=== PATIENT | female | born 1965 ===

== ENCOUNTER 2017-01-08 13:00 | Emergency (ER) | payer MEDICAID ==
--- NOTE | 2017-01-08 13:33 | ED PDOC ---
Arrival/HPI - General Time Seen by Provider: 01/08/17 13:29 Historian: Patient - History of Present Illness Narrative History of Present Illness (Text): 01/08/17 13:31 52 year old female, pmh including osteoporosis, nkda, complaining of lower back pain x 1 week after heavy lifting with no fall or direct trauma. Pt. was trying to lift her 30lbs dog about 1 week ago, been having pain since, aching pain, feels lower back tightness, no night sweat, no rash, no numbness or tingling, non-radiating, no urinary or bowel incontinence or retention, no palpitation, no rash, no other medical or psychological complaints. Past Medical History - Provider Review Nursing Documentation Reviewed: Yes Family/Social History - Physician Review Nursing Documentation Reviewed: Yes Family/Social History: Unknown Family HX Allergies/Home Meds Allergies/Adverse Reactions: Allergies No Known Allergies Allergy (Verified 01/11/15 11:09) Review of Systems - Review of Systems Constitutional: absent: Fatigue, Fevers Eyes: absent: Vision Changes ENT: absent: Hearing Changes Respiratory: absent: SOB, Cough Gastrointestinal: absent: Abdominal Pain, Diarrhea, Nausea, Vomiting Musculoskeletal: Back Pain, Myalgias. absent: Arthralgias, Neck Pain, Joint Swelling Skin: absent: Rash, Pruritis Psychiatric: absent: Anxiety, Depression, Suicidal Ideation Physical Exam Vital Signs Temp Pulse Resp BP Pulse Ox 01/08/17 13:51 98.0 F 72 18 130/82 98 - Systems Exam Head: Present: Atraumatic, Normocephalic Pupils: Present: PERRL Extroacular Muscles: Present: EOMI Conjunctiva: Present: Normal Mouth: Present: Moist Mucous Membranes Neck: Present: Normal Range of Motion Respiratory/Chest: Present: Clear to Auscultation, Good Air Exchange. No: Respiratory Distress, Accessory Muscle Use Cardiovascular: Present: Regular Rate and Rhythm, Normal S1, S2. No: Murmurs Abdomen: Present: Normal Bowel Sounds. No: Tenderness, Distention, Peritoneal Signs, Rebound, Guarding Back: Present: Normal Inspection, Other (LS spine: +ttp and spasm on the bilateral paraspinal muscle region on the lower lumbar region, no midline tenderness or step off, no rash, FROM without limitation, sensation intact, motor 5/5, no saddling gait. ). No: CVA Tenderness, Pain with Leg Raise, Decubitus Ulcer Upper Extremity: Present: Normal Inspection. No: Cyanosis, Edema Lower Extremity: Present: Normal Inspection. No: Edema Neurological: Present: GCS=15, Speech Normal, Motor Func Grossly Intact, Gait Normal, Memory Normal Skin: Present: Warm, Dry, Normal Color. No: Rashes Psychiatric: Present: Alert, Oriented x 3, Normal Insight, Normal Concentration Medical Decision Making ED Course and Treatment: 01/08/17 13:34 -xray -toradol/percocet -observe and reassess 01/08/17 14:58 -Pain improved with much less pain. -Xray show no fracture or subluxation. -Pt. is walking with normal gait and posture, no focal neurological deficits. -Discharge home with celebrex, flexeril, lidoderm patch, heat compression, follow up with your own pmd and pain management within 2 days, return to the Emergency room for any new or worsening signs or symptoms. - RAD Interpretation Radiology Orders: 01/08/17 13:51 LS SPINE WITH OBL > 18 YRS OLD [RAD] Stat PROCEDURE: Radiographs of the Lumbar Spine. HISTORY: lower back pain x 1 month COMPARISON: No prior. FINDINGS: BONES: Normal alignment. No listhesis. No fracture. DISC SPACES: Unremarkable. OTHER FINDINGS: None. IMPRESSION: Unremarkable radiographs of the lumbar spine. [employer] Architect: Radiologist - Medication Orders Current Medication Orders: Discontinued Medications Ketorolac Tromethamine (Toradol) 60 mg IM STAT STA Stop: 01/08/17 13:51 Last Admin: 01/08/17 14:22 Dose: 60 mg MAR Pain Assessment Document 01/08/17 14:22 AD (Rec: 01/08/17 14:23 [id number] Pain Reassessment Is this a pain reassessment? No Presence of Pain Presence of Pain Yes Description Intensity of Pain at present 9 IM Administration Charges Document 01/08/17 14:22 AD (Rec: 01/08/17 14:23 AD [email or web address] Charges for Administration # of IM Administrations 1 Lidocaine (Lidoderm) 1 ea TD STAT STA Stop: 01/08/17 13:51 Oxycodone/Acetaminophen (Percocet 5/325 Mg Tab) 1 tab PO STAT STA Stop: 01/08/17 13:51 Last Admin: 01/08/17 14:22 Dose: 1 tab MAR Pain Assessment Document 01/08/17 14:22 AD (Rec: 01/08/17 14:22 AD [facility] [id number] Pain Reassessment Is this a pain reassessment? No Pain Scale Used Pain Scale Used Numeric Description Intensity of Pain at present 9 - PA / PARADI OPERATOR / Resident Statement MD/DO has reviewed & agrees with the documentation as recorded. Disposition/Present on Arrival - Present on Arrival Any Indicators Present on Arrival: No History of DVT/PE: No History of Uncontrolled Diabetes: No Urinary Catheter: No History of Decub. Ulcer: No - Disposition Have Diagnosis and Disposition been Completed?: Yes Diagnosis: Back muscle spasm, Back pain Disposition: HOME/ ROUTINE Disposition Time: 15:00 Patient Plan: Discharge Condition: IMPROVED Additional Instructions: -Discharge home with celebrex, flexeril, lidoderm patch, heat compression, follow up with your own pmd and pain management within 2 days, return to the Emergency room for any new or worsening signs or symptoms. Prescriptions: Celecoxib [CeleBREX] 200 mg PO DAILY PRN #14 cap PRN Reason: Other Cyclobenzaprine [Cyclobenzaprine HCl] 10 mg PO TID PRN #21 tab PRN Reason: Other Lidocaine 5% [Lidoderm] 1 patch TOP DAILY PRN #14 patch PRN Reason: Other Referrals: Bryan Sewell MD [Primary Care Provider] - Follow up with primary Buck Mckay MD [Staff Provider] - Follow up with primary Forms: WORK NOTE
[2017-01-08 13:50] VITALS: BMI 28.3
[2017-01-08] MEDS ORDERED: Lidocaine 5% Patch TD STA (13:50)
[2017-01-08] MEDS ORDERED: Oxycodone/Acetaminophen 5/325 mg Tab PO STA (13:50)
[2017-01-08 14:24] VITALS: BP 130/82; PULSE 72; RESP 18; TEMP 98; O2SAT 98
--- NOTE | 2017-01-08 14:53 | RAD ---
PROCEDURE: Radiographs of the Lumbar Spine. HISTORY: lower back pain x 1 month COMPARISON: No prior. FINDINGS: BONES: Normal alignment. No listhesis. No fracture. DISC SPACES: Unremarkable. OTHER FINDINGS: None. IMPRESSION: Unremarkable radiographs of the lumbar spine.
== END 2017-01-08 15:32 | disposition home or self-care (01) ==
LOC: ED 13:00
DX: M54.5 Low back pain (principal); M62.830 Muscle spasm of back; M81.0 Age-related osteoporosis without current pathological fracture
CPT/HCPCS: 72110; 96372; 99283; J1885